=== PATIENT | female | born 1960 | race Caucasian/White ===

== ENCOUNTER 2019-07-08 08:47 | Day surgery (SDC) | payer BC ==
[~2019-07-08 08:47] MED LIST: ACETAMINOPHEN 1,000 MG/100 ML BTL IVPB ONE; CEFAZOLIN 2 Gram 2 GM/50 ML BAG IVPB ONE; FAMOTIDINE 20MG TABLET PO ONE; METOCLOPRAMIDE 10 MG TABLET PO ONE; SCOPOLAMINE 1 PATCH TDSY TD ONE
[2019-07-08] MEDS ORDERED: MIDAZOLAM HCL 2MG/2ML VIAL IV ONE (08:48)
[2019-07-08] MEDS ORDERED: ROPIVACAINE HCL (NAROPIN) /PF 5MG/ML 20ML VIAL IV ONE (08:48)
[2019-07-08] MEDS ORDERED: RINGERS SOLUTION,LACTATED 1,000 ML IV ONE ×2 (09:31→12:05)
[2019-07-08] MEDS ORDERED: BUPIVACAINE 0.5% W/EPI MPF 30 ML VIAL SQ ONE (11:55)
--- NOTE | 2019-07-14 14:01 | Operative Note ---
DATE OF SURGERY: 07/08/2019 PREOPERATIVE DIAGNOSIS: Painful orthopedic hardware of right ankle. POSTOPERATIVE DIAGNOSIS: Painful orthopedic hardware of right ankle. OPERATION: Removal of deep buried hardware right ankle. STAFF SURGEON: Joshua Polo MD ANESTHESIA: Block with local supplementation. PREPARATION: Chloraprep. INDIVIDUAL CONSIDERATIONS: None. PROCEDURE: The patient was taken to the operating room and placed supine on the operating room table. She had a successful induction of an ankle block and her right leg was prepped and draped in the usual fashion. I used the previous incision which was posterior to the distal fibula. The skin was infiltrated with 0.5% Marcaine with epinephrine prior. Sharp dissection carried down through skin and then careful sharp dissection then went anteriorly above the peroneal tendons to the fibular shaft and lateral malleolus. There was a plate which was on a slightly inferolateral surface which was opened sharply and exposed. I went ahead and removed the 4 screws and then the plate. The fracture had healed. After irrigation, I just went ahead and approximated the skin with a running 3-0 quill, and a sterile bulky compressive dressing was applied. The patient tolerated procedure well. Needle and sponge counts were correct. Estimated blood loss was minimal. She was taken back to recovery in good condition. There were no complications. PEARL
== END 2019-07-08 12:25 | disposition home or self-care (01) ==
LOC: SUR 08:47
PROVIDERS: ATTEND Orthopaedic Surgery
DX: M25.571 Pain in right ankle and joints of right foot (principal); I10 Essential (primary) hypertension; E03.9 Hypothyroidism, unspecified; D86.9 Sarcoidosis, unspecified
CPT/HCPCS: 20680; 01480; 64450; J0690; J2795; 76942; J7120